=== PATIENT | female | born 1960 | race Caucasian/White ===

== ENCOUNTER → 2020-07-14 09:33 | Outpatient (CLI) | payer OTHER, SELFPAY ==
--- NOTE | ~2020-07-14 | MMUS_ITS ---
EXAMINATION: MM diagnostic carla BI w juliano, US breast BI complete HISTORY: New asymmetry reported on clinical physical examination of the breast, right greater than le ft TECHNIQUE: ML, MLO and cc full field and spot 3-D tomosynthesis images of both breasts were performed and synthetic 2-D images were generated. CAD analysis was submitted and interpreted. High resolution complete bilateral breast ultrasound was performed. COMPARISON: 07/23/2019, 07/12/2018, 06/26/2017 bilateral digital screening mammogram examinations FINDINGS: MAMMOGRAPHIC FINDINGS: There is stable fibroglandular asymmetry of the breast. No interval suspicious mass, architectural di stortion, malignant calcification, skin thickening or significant new or developing density since 05/30 is detected. ULTRASOUND: No suspicious mass or shadowing or vascularity of either breast is evident. IMPRESSION: 1. No mammographic evidence of malignancy 2. Routine mammographic screening is recommended BI-RADS Category 2: Benign finding(s). Reviewed, dictated and finalized at location A. IMPRESSION: 1. No mammographic evidence of malignancy 2. Routine mammographic screening is recommended BI-RADS Category 2: Benign finding(s).
== END ==
PROVIDERS: Visit Provider Nurse Practitioner
DX: R92.8 Other abnormal and inconclusive findings on diagnostic imaging of breast (principal)
CPT/HCPCS: 76641; 77062; 77066; G0279

== ENCOUNTER → 2021-07-19 10:53 | Outpatient (CLI) | payer OTHER, SELFPAY ==
--- NOTE | ~2021-07-19 | MM_ITS ---
EXAMINATION: MM screening [facility] BI w juliano HISTORY: Screening mammogram TECHNIQUE: Craniocaudal and mediolateral oblique 3-D tomosynthesis images were obtained and synthetic 2-D images were generated. CAD analysis was submitted and interpreted. COMPARISON: 07/14/2020, 07/23/2019, 07/12/2018 BREAST PARENCHYMAL COMPOSITION: There are scattered areas of fibroglandular density. FINDINGS: There is no evidence of suspicious mass, calcification, or architectural distortion to sugg est malignancy in either breast. There has been no suspicious interval change. IMPRESSION: 1. No mammographic evidence of malignancy. 2. Recommend routine screening mammography in one year. BI-RADS Category 1: Negative Reviewed, dictated and finalized at location A.
== END ==
PROVIDERS: PCP Physician Assistant; Visit Provider Obstetrics & Gynecology Gynecology
DX: Z12.31 Encounter for screening mammogram for malignant neoplasm of breast (principal)
CPT/HCPCS: 77063; 77067

== ENCOUNTER → 2021-09-26 14:08 | Outpatient (CLI) | payer OTHER, SELFPAY ==
--- NOTE | ~2021-09-26 | XR_ITS ---
EXAMINATION: [id number] DATE: 09/26/2021 14:35 INDICATION: Right rib pain. TECHNIQUE: A frontal view of the chest and 2 views on 3 radiographs of the right ribs were obtained. COMPARISON: None. FINDINGS: There is mild scarring at the lung apices. No pleural effusion or pneumothorax. The heart s ize is normal. There is a fracture deformity of right ninth rib. IMPRESSION: 1. Age-indeterminate fracture deformity of right ninth rib. Reviewed, dictated and finalized at location A. 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
== END ==
PROVIDERS: PCP Physician Assistant; Visit Provider Physician Assistant
DX: R07.81 Pleurodynia (principal)
CPT/HCPCS: 71101

== ENCOUNTER → 2021-11-21 13:25 | Outpatient (CLI) | payer OTHER, SELFPAY ==
--- NOTE | ~2021-11-21 | DEXA_ITS ---
Bone Density Report Name: NED SMART Age: 61 Sex: Female Ethnicity: White Date of : 1960 Indication: osteopenia; prior fracture; postmenopausal Referring Provider: Jewel*Russell, Whitney Study: Bone densitometry was performed. Exam Date: November 21, 2021 Accession number: [id number] Bone Density: Region BMD T-score Z-score Classification AP Spine (L1-L4) 0.878 -1.5 0.1 Osteopenia Femoral Neck (Left) 0.625 -2.0 -0.6 Osteopenia Total Hip (Left) 0.725 -1.8 -0.7 Osteopenia Femoral Neck (Right) 0.652 -1.8 -0.3 Osteopenia Total Hip (Right) 0.807 -1.1 0.0 Osteopenia Total Hip Mean 0.766 -1.5 -0.4 Osteopenia World Health Organization criteria for BMD impression classify patients as: Normal (T-score at or above -1.0), Osteopenia (T-score between -1.0 and -2.5), or Osteoporosis (T-score at or below -2.5). 10-year Fracture Risk(1): Major Osteoporotic Fracture 17% Hip Fracture 2.2% Reported Risk Factors: [place] (), Neck BMD=0.625, BMI=27.1, previous fracture (1) FRAX(R) Version 3.08. Fracture probability calculated for an untreated patient. Fracture probability may be lower if the patient has received treatment. Previous Exams: Region Exam Age BMD T-score BMD Change BMD Change Date g/cm2 vs Baseline vs Previous AP Spine(L1-L4) 11/21/2021 61 0.878 -1.5 0.006 0.022 10/27/2019 59 0.856 -1.7 -0.016 -0.024* 10/23/2017 57 0.880 -1.5 0.008 0.001 09/22/2013 53 0.879 -1.5 0.006 -0.011 10/15/2009 49 0.889 -1.4 0.017 0.017 05/31/2006 45 0.872 -1.6 Total Hip(Left) 11/21/2021 61 0.725 -1.8 0.026 0.007 10/27/2019 59 0.718 -1.8 0.019 -0.012 10/23/2017 57 0.730 -1.7 0.031* -0.019 09/22/2013 53 0.749 -1.6 0.050* 0.039* 10/15/2009 49 0.710 -1.9 0.011 0.011 05/31/2006 45 0.699 -2.0 Total Hip(Right) 11/21/2021 61 0.807 -1.1 0.024 0.017 10/27/2019 59 0.790 -1.2 0.007 -0.010 10/23/2017 57 0.800 -1.2 0.018 -0.005 09/22/2013 53 0.805 -1.1 0.023 0.048* 10/15/2009 49 0.758 -1.5 -0.025 -0.025 05/31/2006 45 0.782 -1.3 *Denotes significance at 95% confidence level, LSC for AP Spine = 0.022 g/cm2, LSC for Total Hip = 0.027 g/cm2 Clinical Information Provided by Patient:
== END ==
PROVIDERS: PCP Physician Assistant; Visit Provider Nurse Practitioner
DX: M85.88 Other specified disorders of bone density and structure, other site (principal); M85.852 Other specified disorders of bone density and structure, left thigh; M85.851 Other specified disorders of bone density and structure, right thigh
CPT/HCPCS: 77080

== ENCOUNTER → 2022-09-28 10:46 | Outpatient (CLI) | payer OTHER, SELFPAY ==
--- NOTE | ~2022-09-28 | MM_ITS ---
EXAMINATION: MM screening [facility] BI w juliano HISTORY: Screening mammogram TECHNIQUE: Craniocaudal and mediolateral oblique 3-D tomosynthesis images were obtained and synthetic 2-D images were generated. CAD analysis was submitted and interpreted. COMPARISON: 07/19/2021, 07/14/2020, 07/23/2019 BREAST PARENCHYMAL COMPOSITION: There are scattered areas of fibroglandular density. FINDINGS: No suspicious mass, calcification, or architectural distortion are identified in either emerald ast to suggest malignancy. There has been no suspicious interval change. IMPRESSION: 1. No mammographic evidence of malignancy. 2. Recommend routine screening mammography in one year. BI-RADS Category 1: Negative Reviewed, dictated and finalized at location A. 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
== END ==
PROVIDERS: PCP Physician Assistant; Visit Provider Nurse Practitioner
DX: Z12.31 Encounter for screening mammogram for malignant neoplasm of breast (principal)
CPT/HCPCS: 77063; 77067

== ENCOUNTER → 2023-10-18 11:25 | Outpatient (CLI) | payer OTHER, SELFPAY ==
--- NOTE | ~2023-10-18 | MM_ITS ---
EXAMINATION: MM screening carla BI w juliano HISTORY: Screening mammogram TECHNIQUE: Craniocaudal and mediolateral oblique 3-D tomosynthesis images were obtained and synthetic 2-D images were generated. CAD analysis was submitted and interpreted. COMPARISON: 09/28/2022, 07/19/2021 bilateral screening mammogram examinations BREAST PARENCHYMAL COMPOSITION: There are scattered areas of fibroglandular density. FINDINGS: There is no evidence of suspicious mass, calcification, or architectural distortion to sugg est malignancy in either breast. There has been no suspicious interval change. IMPRESSION: 1. No mammographic evidence of malignancy. 2. Recommend routine screening mammography in one year. BI-RADS Category 1: Negative Reviewed, dictated and finalized at location A. 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
== END ==
PROVIDERS: PCP Nurse Practitioner; Visit Provider Nurse Practitioner
DX: Z12.31 Encounter for screening mammogram for malignant neoplasm of breast (principal)
CPT/HCPCS: 77063; 77067

== ENCOUNTER → 2023-12-03 11:07 | Outpatient (CLI) | payer MEDICARE, SELFPAY ==
--- NOTE | ~2023-12-03 | DEXA_ITS ---
Bone Density Report Name: NED SMART Age: 63 Sex: Female Ethnicity: White Date of : 1960 Indication: osteopenia; prior fracture; postmenopausal Referring Provider: Jewel, Whitney Study: Bone densitometry was performed. Exam Date: December 03, 2023 Accession number: [id number] Bone Density: Region BMD T-score Z-score Classification AP Spine (L1-L4) 0.864 -1.7 0.1 Osteopenia Femoral Neck (Left) 0.632 -2.0 -0.4 Osteopenia Total Hip (Left) 0.738 -1.7 -0.4 Osteopenia Femoral Neck (Right) 0.665 -1.7 -0.1 Osteopenia Total Hip (Right) 0.808 -1.1 0.1 Osteopenia Total Hip Mean 0.773 -1.4 -0.2 Osteopenia World Health Organization criteria for BMD impression classify patients as: Normal (T-score at or above -1.0), Osteopenia (T-score between -1.0 and -2.5), or Osteoporosis (T-score at or below -2.5). 10-year Fracture Risk(1): Major Osteoporotic Fracture 17% Hip Fracture 2.4% Reported Risk Factors: [place] (), Neck BMD=0.632, BMI=28.7, previous fracture (1) FRAX(R) Version 3.08. Fracture probability calculated for an untreated patient. Fracture probability may be lower if the patient has received treatment. Previous Exams: Region Exam Age BMD T-score BMD Change BMD Change Date g/cm2 vs Baseline vs Previous AP Spine(L1-L4) 12/03/2023 63 0.864 -1.7 -0.009 -0.015 11/21/2021 61 0.878 -1.5 0.006 0.022 10/27/2019 59 0.856 -1.7 -0.016 -0.024* 10/23/2017 57 0.880 -1.5 0.008 0.001 09/22/2013 53 0.879 -1.5 0.006 -0.011 10/15/2009 49 0.889 -1.4 0.017 0.017 05/31/2006 45 0.872 -1.6 Total Hip(Left) 12/03/2023 63 0.738 -1.7 0.039* 0.013 11/21/2021 61 0.725 -1.8 0.026 0.007 10/27/2019 59 0.718 -1.8 0.019 -0.012 10/23/2017 57 0.730 -1.7 0.031* -0.019 09/22/2013 53 0.749 -1.6 0.050* 0.039* 10/15/2009 49 0.710 -1.9 0.011 0.011 05/31/2006 45 0.699 -2.0 Total Hip(Right) 12/03/2023 63 0.808 -1.1 0.026 0.002 11/21/2021 61 0.807 -1.1 0.024 0.017 10/27/2019 59 0.790 -1.2 0.007 -0.010 10/23/2017 57 0.800 -1.2 0.018 -0.005 09/22/2013 53 0.805 -1.1 0.023 0.048* 10/15/2009 49 0.758 -1.5 -0.025 -0.025 05/31/2006 45 0.782 -1.3
== END ==
PROVIDERS: PCP Physician Assistant; Visit Provider Nurse Practitioner
DX: Z78.0 Asymptomatic menopausal state (principal); Z13.820 Encounter for screening for osteoporosis; M85.88 Other specified disorders of bone density and structure, other site; M85.852 Other specified disorders of bone density and structure, left thigh; M85.851 Other specified disorders of bone density and structure, right thigh
CPT/HCPCS: 77080

== ENCOUNTER → 2023-12-03 11:07 | Outpatient (CLI) | payer MEDICARE, SELFPAY ==
--- NOTE | ~2023-12-03 | XR_ITS ---
XR hip BI wo pelvis DATE: 12/03/2023 11:30 INDICATION: Bilateral hip pain TECHNIQUE: AP and lateral views of each hip COMPARISON: None FINDINGS: Mild bilateral hip joint space narrowing and spurring consistent with mild bilateral hip os teoarthritis. No fracture or dislocation, avascular necrosis or bone destruction of either hip is detected. Normal alignment at the pubic symphysis and sacroiliac joints. IMPRESSION: Mild bilateral hip osteoarthritis Reviewed, dictated and finalized at location B. 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
== END ==
PROVIDERS: PCP Obstetrics & Gynecology Gynecology; Visit Provider Physician Assistant
DX: M16.0 Bilateral primary osteoarthritis of hip (principal)
CPT/HCPCS: 73521

== ENCOUNTER 2024-06-21 15:25 | Emergency (ER) | payer MEDICARE, SELFPAY ==
--- NOTE | ~2024-06-21 | XR_ITS ---
EXAM: XR toe 1st RT min 2V DATE: 06/21/2024 18:36 HISTORY: pt tripped and fell this afternoon . COMPARISON: None available. FINDINGS: Decreased mineralization. No fracture or dislocation. No lytic or blastic lesion. Moderate hallux valgus and mild first MTP joint osteoarthritis. No erosion or periosteal change. Soft tissues within normal limits. IMPRESSION: No acute osseous finding in the right first toe. Reviewed, dictated and finalized at location K.
--- NOTE | ~2024-06-21 | XR_ITS ---
EXAM: XR wrist RT min 3V DATE: 06/21/2024 15:42 HISTORY: fall . COMPARISON: None available. FINDINGS: Normal mineralization. Oblique nondisplaced fracture in the distal scaphoid extending to t he triscaphe joint. No lytic or blastic lesion. Joint spaces are maintained. No erosion or periosteal change. Soft tissues within normal limits. IMPRESSION: Oblique nondisplaced fracture of the distal right scaphoid. Reviewed, dictated and finalized at location K.
[2024-06-21 15:33] VITALS: BP 122/61; PULSE 68; RESP 18; TEMP 36.4; O2SAT 98
--- NOTE | 2024-06-21 18:29 | ED.GENADULT ---
HPI - General Adult General Chief complaint: Extremity Injury, Upper Stated complaint: RIGHT wrist injury Time Seen by Provider: 06/21/24 18:11 History of Present Illness HPI narrative: Patient is a 63-year-old female who presents ER with pain in the right wrist in great toe. She had kinked a hose was placing a sprinkler in her yard , she then ran away while wearing clogs and tripped and fell. She landed on her right wrist, stubbed her great toe on the right side, and struck her nose on the ground. brief bleeding from her right nostril. She did not lose consciousness. No headache or change in vision or change in hearing. Related Data Allergies Allergy/AdvReac Type Severity Reaction Status Date / Time acetaminophen Allergy Intermediate HIVES Verified 08/01/19 09:49 hydrocodone Allergy Intermediate HIVES Verified 08/01/19 09:49 Review of Systems Constitutional: Constitutional: Reports no additional constitutional complaints Cardiovascular: Cardiovascular: Reports no additional cardiovascular complaints Respiratory: Respiratory: Reports no additional respiratory complaints Musculoskeletal: Musculoskeletal: Reports arthralgias and Reports joint swelling PMFSH Past Medical History Medical History (Updated 06/21/24 @ 19:49 by Fernando Hernandes MD) Healthy female adult Exam Narrative: GENERAL: Well-appearing, well-nourished, and in no acute distress. HEAD: Normocephalic, atraumatic. EYES: PERRL and EOMI. ENT: small amount of blood in the right naris. Bruising over the bridge in as a tenderness palpation but no angulation. Mucous membranes moist. NECK: Supple. no neck tenderness. CHEST: Clear to auscultation. No respiratory distress. HEART: Regular rate and rhythm. Normal peripheral pulses. EXTREMITIES: Tender palpation at the anatomic snuffbox in the right wrist with limited flexion extension at the wrist. Normal range of motion digits of the hand. There is contusion with tenderness over the PIP of the right great toe. SKIN: Warm, dry, no rash. NEURO: Alert and oriented x3. PSYCH: Normal mood and affect. Course Course Emergency Course: Patient educated on imaging results. Thumb spica splint applied. Discharge home. Vital Signs Vital signs: Vital Signs Temperature 97.6 F 06/21/24 15:33 Pulse Rate 68 06/21/24 15:33 Respiratory Rate 18 06/21/24 15:33 Blood Pressure 122/61 06/21/24 15:33 Pulse Oximetry 98 06/21/24 15:33 Temperature 97.6 F 06/21/24 15:33 Pulse Rate 71 06/21/24 19:36 Respiratory Rate 15 06/21/24 19:36 Blood Pressure 113/55 L 06/21/24 19:36 Pulse Oximetry 99 06/21/24 19:36 Procedures Orthopedic Splinting/Casting Injury #1: Side: right Upper Extremity Injury Location: wrist Upper Extremity Immobilizer: thumb spica Splint: customized in ED Pre-Procedure Neuro Vascular Exam: normal Post-Procedure Neuro Vascular Exam: normal Medical Decision Making Vital Signs Vital Signs: Vital Signs Temperature 97.6 F 06/21/24 15:33 Pulse Rate 68 06/21/24 15:33 Respiratory Rate 18 06/21/24 15:33 Blood Pressure 122/61 06/21/24 15:33 Pulse Oximetry 98 06/21/24 15:33 Temperature 97.6 F 06/21/24 15:33 Pulse Rate 71 06/21/24 19:36 Respiratory Rate 15 06/21/24 19:36 Blood Pressure 113/55 L 06/21/24 19:36 Pulse Oximetry 99 06/21/24 19:36 Discharge Plan Discharge Clinical Impression: Fracture of scaphoid Patient Disposition: Home, Self-Care Condition: Stable Instructions: Scaphoid Fracture (ED) Additional Instructions: Return the ER if you suffered a new injury, you have a cold /blue thumb, or you have additional concerns. Prescriptions: New tramadol 50 mg tablet 50 mg PO Q6H PRN (Reason: pain) Qty: 14 0RF Follow-up/Referrals: Jose Raul Banda MD [Physician] - 1 Week Rodger,NOEL Tang [Primary Care Provider] -
[2024-06-21] MEDS: traMADol HCL (*CRX) 50 MG TABLET PO (19:15)
[2024-06-21 19:36] VITALS: BP 113/55; PULSE 71; RESP 15; O2SAT 99
== END 2024-06-21 20:13 | disposition home or self-care (01) ==
PROVIDERS: Emergency Provider Emergency Medicine; PCP Physician Assistant
DX: S62.014A Nondisplaced fracture of distal pole of navicular [scaphoid] bone of right wrist, initial encounter for closed fracture (principal); S90.111A Contusion of right great toe without damage to nail, initial encounter; S00.33XA Contusion of nose, initial encounter; W01.0XXA Fall on same level from slipping, tripping and stumbling without subsequent striking against object, initial encounter
CPT/HCPCS: 29125; 73110; 73660; 99284; A9270

== ENCOUNTER 2024-10-20 12:40 | Outpatient (CLI) | payer MEDICARE, SELFPAY ==
--- NOTE | ~2024-10-20 | MM_ITS ---
EXAMINATION: MM screening [facility] BI w juliano HISTORY: Screening TECHNIQUE: Craniocaudal and mediolateral oblique 3-D tomosynthesis images were obtained and synthetic 2-D images were generated. CAD analysis was submitted and interpreted. COMPARISON: 10/18/2023 and dating back to 07/23/2019 BREAST PARENCHYMAL COMPOSITION: There are scattered areas of fibroglandular density. FINDINGS: Stable parenchymal pattern without suspicious microcalcifications, architectural distortion, discrete masses or significant asymmetry. Punctate calcifications detected bilaterally, mostly dermal in origin and otherwise benign in appeara nce IMPRESSION: 1. No mammographic evidence of malignancy. 2. Recommend routine screening mammography in one year. BI-RADS Category 2: Benign finding(s). Reviewed, dictated and finalized at location A. 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
== END 2024-10-20 12:41 | disposition home or self-care (01) ==
PROVIDERS: PCP Physician Assistant; Visit Provider Nurse Practitioner
DX: Z12.31 Encounter for screening mammogram for malignant neoplasm of breast (principal)
CPT/HCPCS: 77063; 77067

== ENCOUNTER 2024-11-24 15:41 | Outpatient (CLI) | payer SELFPAY ==
--- NOTE | ~2024-11-24 | XR_ITS ---
EXAMINATION: XR wrist RT min 3V DATE: 11/24/2024 16:19 INDICATION: Right wrist pain. TECHNIQUE: 4 views of right wrist were obtained. COMPARISON: Right wrist radiographs 08/05/2024 FINDINGS: Alignment is normal. No fracture. There is mild osteoarthritis of triscaphe joint and first carpometacarpal joint. IMPRESSION: 1. Mild polyarticular osteoarthritis. Reviewed, dictated and finalized at location A. 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
== END 2024-11-24 15:42 | disposition home or self-care (01) ==
PROVIDERS: PCP Physician Assistant; Visit Provider Physician Assistant
DX: M19.031 Primary osteoarthritis, right wrist (principal)
CPT/HCPCS: 73110